=== PATIENT | female | born 1985 | race Hispanic/Latino ===

== ENCOUNTER 2016-10-27 00:22 | Outpatient (CLI) | payer MEDICAID ==
[2016-10-27 00:51] VITALS: BP 128/76
[2016-10-27] MEDS ORDERED: VISTARIL PO PRN (04:04)
--- NOTE | 2016-10-27 10:11 | Ultrasound Report ---
BIOPHYSICAL PROFILE: 2 - breathing movements 2 - movements 2 - posture and tone 2 - Qualitative amniotic fluid volume H. - TOTAL SCORE OF POSSIBLE 8 Heart Rate (bpm) 141 Gestation: Single Position: Cephalic Amniotic Fluid: JOE = 9.2 cm Placenta: Anterior Placental Grade: 1 Heart Rate: 141 BPM
== END 2016-10-27 04:33 | disposition home or self-care (01) ==
LOC: TRG 00:22
PROVIDERS: ATTEND Obstetrics & Gynecology
DX: O48.0 Post-term pregnancy (principal); Z3A.41 41 weeks gestation of pregnancy
CPT/HCPCS: 59025; 76815; 76819; Q0177

== ENCOUNTER 2016-10-27 15:59 | Inpatient (IN) | payer MEDICAID ==
[2016-10-27] MEDS ORDERED: ePHEDrine SULFATE IV PRN ×2 (16:08→18:27)
[2016-10-27] MEDS ORDERED: MINERAL OIL PO PRN (16:08)
[2016-10-27] MEDS ORDERED: BRETHINE IVP PRN (16:08)
[2016-10-27] MEDS ORDERED: NARCAN 0.4 MG/1 ML IV PRN (16:08)
[2016-10-27] MEDS ORDERED: SUBLIMAZE IV PRN (16:08)
[2016-10-27] MEDS ORDERED: STADOL IV PRN (16:08)
[2016-10-27] MEDS ORDERED: ZOFRAN IV PRN ×2 (16:08→23:02)
[2016-10-27] MEDS ORDERED: BRETHINE SUB-Q PRN (16:17)
[2016-10-27] MEDS ORDERED: PITOCin/NS 30 UNIT/500ML 30 UNITS/500 ML BAG IV SCH (16:30)
[2016-10-27] MEDS ORDERED: POLYCILLIN/NS 2 GM/100 ML 2 GM/100 ML BAG IV ONE (17:00)
[2016-10-27] MEDS ORDERED: XYLOCAINE 2% INFILTRATI ONE (17:00)
[2016-10-27] MEDS ORDERED: PITOCin/NS 20 UNIT/1000ML DRIP 20 UNITS/1,000 ML BAG IV SCH ×2 (17:00→23:02)
[2016-10-27 17:08] LABS: Hematocrit 35.8 % (30.3-42.9); Hemoglobin 11.8 gm/dl (10.1-14.3); Mean Corpuscular HGB Conc 33 % (30-34); Mean Corpuscular Hemoglobin 27 pg (28-32); Mean Corpuscular Volume 83 fl (79-97); Platelet Count 196 K/mm3 (140-440); Red Blood Count 4.32 M/mm3 (3.65-5.03); White Blood Count 14.4 K/mm3 (4.5-11.0)
[2016-10-27] MEDS ORDERED: ePHEDrine SULFATE ONE (17:48)
[2016-10-27] MEDS: LACTATED RINGERS 1,000 ML IV SCH ×2 (17:49→18:03)
--- NOTE | 2016-10-27 18:27 | Anesthesia Consultation ---
Anesthesia Consult and Med Hx Date of service: 10/27/16 - Airway Anesthetic Teeth Evaluation: Good ROM Head & Neck: Adequate Mental/Hyoid Distance: Adequate Intubation Access Assessment: Probably Good - Pre-Operative Health Status ASA Pre-Surgery Classification: ASA2, Emergency Proposed Anesthetic Plan: Epidural, Spinal - Pulmonary Hx Asthma: No COPD: No Hx Pneumonia: No - Cardiovascular System Hx Hypertension: No - Central Nervous System Hx Seizures: No Hx Psychiatric Problems: No - Endocrine Hx Renal Disease: No Hx End Stage Renal Disease: No Hx Hypothyroidism: No Hx Hyperthyroidism: No - Hematic Hx Anemia: No Hx Sickle Cell Disease: No - Other Systems Hx Alcohol Use: No
[2016-10-27] MEDS ORDERED: fentaNYL-BUPIV 2 MCG/ML-0.125% 200 MCG/100 ML BAG EPIDURAL SCH (19:00)
[2016-10-27] MEDS ORDERED: XYLOCAINE MPF 2% ONE (19:04)
--- NOTE | 2016-10-27 20:15 | History and Physical Report ---
History of Present Illness Date of examination: 10/27/16 Date of admission: 10/27/16 16:21 Chief complaint: contractions History of present illness: Pt is a 31 year old female DALE 10/20/16 at 41w0d who presents with worsening regular contractions and cervical change from 3 cm at check earlier this morning in triage to 5 cm presently. She reports leakage of fluid that is meconium stained. She denies vaginal bleeding. She has had care with Dr Alida Oneil that has been uncomplicated. She is GBS negative. Past History Past Medical History: seizure (unspecified seizure disorder; last seizure 7 years ago ), hematologic disorders (Rh negative ) Past Surgical History: no surgical history Family/Genetic History: none Social history: - Obstetrical History Expected Date of Delivery: 10/20/16 Actual Gestation: 41 Week(s) 0 Day(s) : 3 Para: 2 Hx # Term Pregnancies: 2 Number of Pregnancies: 0 Spontaneous Abortions: 0 Induced : 0 Number of Living Children: 2 Medications and Allergies Allergies Allergy/AdvReac Type Severity Reaction Status Date / Time Latex, Natural Rubber Allergy Intermediate Rash Verified 05/17/14 08:36 Home Medications Medication Instructions Recorded Confirmed Last Taken Type HYDROcodone/ACETAMINOPHEN [Lortab 2 each PO Q6HR PRN #30 tablet 05/19/14 Unknown Rx 5-325 mg Tablet] Ibuprofen [Motrin 600 MG tab] 600 mg PO Q6H #30 tablet 05/19/14 Unknown Rx Active Meds: Active Medications Butorphanol Tartrate (Stadol) 2 mg IV Q2H PRN PRN Reason: Pain , Severe (7-10) Fentanyl (Sublimaze) 100 mcg IV Q2H PRN PRN Reason: Labor Pain Lactated Ringer's (Lactated Ringers) 1,000 mls @ 125 mls/hr IV DIRECT TAZ Last Admin: 10/27/16 18:03 Dose: 125 mls/hr Oxytocin/Sodium Chloride (Pitocin/Ns 20 Unit/1000ml Drip) 20 units in 1,000 mls @ 125 mls/hr IV DIRECT TAZ Oxytocin/Sodium Chloride (Pitocin/Ns 30 Unit/500ml) 30 units in 500 mls @ 4 mls /hr IV TITR TAZ PRN Reason: Protocol Last Titration: 10/27/16 19:35 Dose: 12 ml/hr, 12 mls/hr Fentanyl/Bupivacaine/Sodium Chlor (Fentanyl-Bupiv 2 Mcg/Ml-0.125%) 200 mcg in 100 mls @ 12 mls/hr EPIDURAL TITR TAZ PRN Reason: Protocol Last Admin: 10/27/16 18:47 Dose: 12 mls/hr Mineral Oil (Mineral Oil) 30 ml PO QHS PRN PRN Reason: Constipation Naloxone HCl (Narcan 0.4 Mg/1 Ml) 0.1 mg IV Q2MIN PRN PRN Reason: Res Rate </= 8 or 02 SAT < 92% Ondansetron HCl (Zofran) 4 mg IV Q8H PRN PRN Reason: Nausea And Vomiting Review of Systems All systems: negative - Vital Signs Vital signs: Vital Signs Temp Resp BP 97.9 F 18 133/77 10/27/16 17:07 10/27/16 17:07 10/27/16 17:07 Temp Pulse Resp BP Pulse Ox 97.6 F 119 H 20 118/70 99 10/27/16 19:18 10/27/16 20:03 10/27/16 19:18 10/27/16 19:51 10/27/16 20:03 - Physical Exam Breasts: Positive: deferred Cardiovascular: Regular rate Lungs: Positive: Clear to auscultation Abdomen: Positive: soft (obese, gravid ) Genitourinary (Female): Positive: normal external genitalia Uterus: Positive: enlarged (gravid ) Extremities: Positive: edema (1+ ) - Obstetrical FHR: category 2 Cervical Dilatation: 8 Cervical Effacement Percentage: 90 station: -1 Uterine Contraction Pattern: Regular Uterine Tone Measurement Phase: Resting Uterine Contraction Intensity: Strong/Firm Results Result Diagrams: 10/27/16 16:45 Abnormal lab results 10/27/16 Range/Units 16:45 WBC 14.4 H (4.5-11.0) K/mm3 MCH 27 L (28-32) pg RDW 16.0 H (13.2-15.2) % All other labs normal. Assessment and Plan A: IUP at 41w0d Active labor Rh Negative SROM- thin meconium GBS negative Obesity Seizure Disorder P: Admit to labor and delivery. Routine intrapartum care. Monitor maternal and status.
[2016-10-27] MEDS ORDERED: POLYCILLIN/NS 1 GM/50 ML 1 GM/50 ML BAG IV SCH (21:00)
--- NOTE | 2016-10-27 21:07 | Procedure Note ---
OB Delivery Note - Delivery Date of Delivery: 10/27/16 Surgeon: ERAN CHRISTENSEN Estimated blood loss: other (400 mL) - Vaginal Delivery presentation: vertex Delivery position: OA Intrapartum events: PROM->1hr before delivery, meconium Delivery monitor: external FHT, external uterine Route of delivery: Delivery placenta: spontaneous Delivery cord: nuchal cord, 3 umbilical vessels Episiotomy: none Delivery laceration: 2nd degree Delivery repair: vicryl Anesthesia: epidural Delivery comments: Pt progressed to complete/complete/+1 and pushed to deliver a viable male over intact perineum via under epidural anesthesia. Head delivered in the GABRIEL position. Nuchal cord was doubly clamped and cut. Shoulders and body delivered easily. placed on maternal abdomen and bulb suctioned. NICU in attendance for meconium. Cord blood collected. Placenta delivered spontaneously (3VC, intact). Vagina and perineum explored. Second degree perineal laceration repaired with 2-0 Vicryl in a standard fashion. EBL 400 mL. - A at 1 minute: 8 at 5 minutes: 9 Infant Gender: Male (4239g (9lb 5oz))
[2016-10-27] MEDS ORDERED: PHENERGAN PR PRN (23:02)
[2016-10-27] MEDS ORDERED: TYLENOL PO PRN (23:02)
[2016-10-27] MEDS ORDERED: DULCOLAX PR PRN (23:02)
[2016-10-27] MEDS ORDERED: LANSINOH TP PRN (23:02)
[2016-10-27] MEDS ORDERED: SODIUM CHLORIDE FLUSH SYRINGE 10 ML IV NR (23:02)
[2016-10-27] MEDS ORDERED: MILK OF MAGNESIA PO PRN (23:02)
[2016-10-27] MEDS ORDERED: BENADRYL PO PRN (23:02)
[2016-10-27] MEDS ORDERED: PHENERGAN PO PRN (23:02)
[2016-10-28] MEDS: MOTRIN PO SCH ×2 (00:09→05:45)
[2016-10-28] MEDS: TUCKS PAD TP PRN (00:10)
[2016-10-28] MEDS: DERMOPLAST TP PRN (00:10)
[2016-10-28] MEDS: NORCO 5/325 PO PRN ×2 (01:33→08:52)
[2016-10-28] MEDS ORDERED: BOOSTRIX IM ONE (06:00)
[2016-10-28] MEDS ORDERED: M-M-R II VACCINE SUB-Q ONE (06:00)
[2016-10-28] MEDS: FEOSOL PO SCH ×2 (08:52→21:52)
[2016-10-28] MEDS: COLACE PO SCH ×2 (08:52→21:52)
[2016-10-28] MEDS: PRENATAL VITAMIN PO SCH (08:54)
[2016-10-28 09:28] LABS: Hematocrit 37.5 % (30.3-42.9); Hemoglobin 12.3 gm/dl (10.1-14.3)
[2016-10-28] MEDS ORDERED: MORPHINE IV ONE (10:00)
--- NOTE | 2016-10-28 10:17 | Progress Note ---
Assessment and Plan A: PPD#1 s/p at term; Poor pain control P: Routine care. Change pain medication. Anticipate discharge tomorrow. Subjective - Subjective Date of service: 10/28/16 Principal diagnosis: s/p at term Interval history: Poor pain control overnight. Patient reports: appetite normal, voiding normally, pain poorly controlled, ambulating normally : doing well Objective - Vital Signs Latest vital signs: Vital Signs Temp Pulse Pulse Pulse Resp BP BP 10/28/16 08:52 20 10/28/16 07:39 98.7 F 72 18 10/28/16 04:30 -98.6 F L 68 16 114/70 10/28/16 01:33 20 10/28/16 00:00 98.6 F 77 16 124/72 10/27/16 21:08 101 H 10/27/16 21:05 111 H 139/56 10/27/16 20:59 104 H 10/27/16 20:57 104 H 10/27/16 20:52 107 H 10/27/16 20:47 110 H 10/27/16 20:36 110 H 10/27/16 20:32 143 H 10/27/16 20:27 104 H 10/27/16 20:22 100 H 136/68 10/27/16 20:17 118 H 10/27/16 20:12 106 H 10/27/16 20:07 109 H 10/27/16 20:03 119 H 10/27/16 19:58 124 H 10/27/16 19:53 115 H 10/27/16 19:51 116 H 118/70 10/27/16 19:47 105 H 10/27/16 19:43 105 H 10/27/16 19:37 104 H 10/27/16 19:32 102 H 10/27/16 19:27 99 H 10/27/16 19:23 99 H 129/76 10/27/16 19:22 107 H 10/27/16 19:21 102 H 95/54 10/27/16 19:18 97.6 F 105 H 100 H 20 129/76 10/27/16 19:13 103 H 10/27/16 19:07 102 H 10/27/16 19:02 103 H 10/27/16 18:58 107 H 10/27/16 18:56 78 10/27/16 18:52 99 H 10/27/16 18:50 95 H 108/59 10/27/16 18:48 100 H 113/62 10/27/16 18:46 109 H 118/67 10/27/16 18:44 100 H 118/65 10/27/16 18:42 103 H 115/64 10/27/16 18:40 101 H 111/61 10/27/16 18:38 110 H 110/62 10/27/16 18:36 104 H 105/56 10/27/16 18:34 115 H 103/58 10/27/16 18:32 97 H 104/56 10/27/16 18:30 100 H 116/63 10/27/16 18:28 105 H 115/59 10/27/16 18:27 107 H 10/27/16 18:26 99 H 117/64 10/27/16 18:24 95 H 118/65 10/27/16 18:23 98 H 10/27/16 18:22 96 H 120/69 10/27/16 18:20 108 H 128/71 10/27/16 18:18 56 L 121/63 10/27/16 18:17 98 H 10/27/16 18:16 102 H 126/73 10/27/16 18:14 97 H 143/75 10/27/16 18:13 99 H 10/27/16 18:12 106 H 139/74 10/27/16 18:10 102 H 144/72 10/27/16 18:08 110 H 123/78 10/27/16 18:06 106 H 135/68 10/27/16 18:04 110 H 145/66 10/27/16 18:03 99 H 10/27/16 18:02 100 H 125/90 10/27/16 18:00 104 H 132/86 10/27/16 17:58 97 H 125/79 10/27/16 17:07 97.9 F 18 133/77 BP Pulse Ox 10/28/16 08:52 10/28/16 07:39 124/60 10/28/16 04:30 10/28/16 01:33 10/28/16 00:00 10/27/16 21:08 100 10/27/16 21:05 10/27/16 20:59 92 10/27/16 20:57 95 10/27/16 20:52 99 10/27/16 20:47 98 10/27/16 20:36 79 L 10/27/16 20:32 100 10/27/16 20:27 100 10/27/16 20:22 99 10/27/16 20:17 100 10/27/16 20:12 100 10/27/16 20:07 100 10/27/16 20:03 99 10/27/16 19:58 98 10/27/16 19:53 100 10/27/16 19:51 10/27/16 19:47 100 10/27/16 19:43 99 10/27/16 19:37 99 10/27/16 19:32 99 10/27/16 19:27 100 10/27/16 19:23 10/27/16 19:22 98 10/27/16 19:21 10/27/16 19:18 97 10/27/16 19:13 99 10/27/16 19:07 99 10/27/16 19:02 99 10/27/16 18:58 99 10/27/16 18:56 87 10/27/16 18:52 98 10/27/16 18:50 10/27/16 18:48 97 10/27/16 18:46 10/27/16 18:44 10/27/16 18:42 98 10/27/16 18:40 10/27/16 18:38 96 10/27/16 18:36 10/27/16 18:34 10/27/16 18:32 98 10/27/16 18:30 10/27/16 18:28 10/27/16 18:27 99 10/27/16 18:26 10/27/16 18:24 10/27/16 18:23 99 10/27/16 18:22 10/27/16 18:20 10/27/16 18:18 75 L 10/27/16 18:17 96 10/27/16 18:16 10/27/16 18:14 10/27/16 18:13 99 10/27/16 18:12 10/27/16 18:10 10/27/16 18:08 94 10/27/16 18:06 10/27/16 18:04 10/27/16 18:03 98 10/27/16 18:02 10/27/16 18:00 10/27/16 17:58 100 10/27/16 17:07 Intake and Output 10/27/16 10/28/16 10/28/16 22:59 06:59 14:59 Intake Total 1000 400 Output Total 600 800 Balance 400 -400 Intake: IV 1000 Lactated Ringers 1,000 ml 1000 @ 125 mls/hr IV DIRECT TAZ Rx#:[id number] Intake, Free Water 400 Output: Urine 600 800 Indwelling Catheter 600 800 Other: Total, Output Amount 600 800 # Voids Indwelling Catheter 2 1 Weight 102.965 kg - Exam Breasts: Present: deferred Cardiovascular: Present: Regular rate Lungs: Present: Clear to auscultation Abdomen: Present: soft (obese) Uterus: Present: fundal height at umbilicus Extremities: Present: edema (trace) - Labs Labs: Abnormal lab results 10/27/16 Range/Units 16:45 WBC 14.4 H (4.5-11.0) K/mm3 MCH 27 L (28-32) pg RDW 16.0 H (13.2-15.2) %
--- NOTE | 2016-10-28 13:19 | Discharge Summary ---
Providers - Providers Date of Admission: 10/27/16 16:21 Date of discharge: 10/29/16 Attending physician: DEBORAH LUIS 10/27/16 23:02 Consult to Library Acquisitions Technician [CONS] Routine Reason For Exam: assistance with , SNS Primary care physician: DEBORAH LUIS Hospitalization Reason for admission: active labor Delivery: Procedure details: Please see delivery note. Episiotomy: none Laceration: 2nd degree Incision: intact Other procedures: none complications: none Discharge diagnosis: IUP at term delivered [place] baby: male Hospital course: The patient was admitted in active labor and ultimately underwent a spontaneous vaginal delivery which she tolerated well. Her course was uncomplicated and she met discharge criteria on postoperative day #2. She will follow up with Dr. Deborah Luis for her visit. Condition at discharge: Stable Disposition: DISCHARGED TO HOME OR SELFCARE - Discharge Diagnoses (1) Term of male Status: Acute (2) Obesity Status: Acute Qualifiers: Obesity type: unspecified obesity type Obesity severity: non-morbid Qualified Code(s): E66.9 - Obesity, unspecified Plan - Discharge Medications Prescriptions: Ibuprofen [Motrin 800 MG tab] 800 mg PO Q8HR PRN #30 tablet PRN Reason: Pain oxyCODONE /ACETAMINOPHEN [Percocet 5/325] 1 tab PO Q6HR PRN #30 tablet PRN Reason: Pain - Provider Discharge Summary Activity: routine, no sex for 6 weeks, no heavy lifting 4 weeks, no strenuous exercise Diet: routine Instructions: routine Additional instructions: [] Smoking cessation referral if applicable(refer to patient education folder for contact #) [] Refer to [facility] Booklet Call your doctor immediately for: * Fever > 100.5 * Heavy vaginal bleeding ( >1 pad per hour) * Severe persistent headache * Shortness of breath * Reddened, hot, painful area to leg or breast * Drainage or odor from incision. * Keep incision clean and dry at all times and follow doctor's instructions regarding bathing/showering - Follow up plan Follow up: DEBORAH LUIS MD [Primary Care Provider] - 11/28/16 ( exam )
[2016-10-28] MEDS: PERCOCET 5/325 PO PRN ×2 (15:09→20:12)
[2016-10-28] MEDS: MOTRIN PO PRN (15:10)
[2016-10-29] MEDS: PERCOCET 5/325 PO PRN ×3 (00:33→13:48)
[2016-10-29] MEDS: MOTRIN PO PRN ×2 (00:33→06:47)
[2016-10-29] MEDS: TUCKS PAD TP PRN (00:43)
[2016-10-29] MEDS: PRENATAL VITAMIN PO SCH (10:15)
[2016-10-29] MEDS: FEOSOL PO SCH (10:15)
[2016-10-29] MEDS: COLACE PO SCH (10:15)
[2016-10-29] MEDS: DERMOPLAST TP PRN (10:23)
[2016-10-29 15:23] VITALS: BP 131/79
== END 2016-10-29 15:30 | disposition home or self-care (01) | DRG 775 ==
LOC: TRG 15:59 → LD 16:21 → OB 23:46
PROVIDERS: ADMIT Obstetrics & Gynecology; ATTEND Obstetrics & Gynecology
PROC: 10E0XZZ Delivery of Products of Conception, External Approach (ICD-10-PCS; principal; 2016-10-27)
PROC: 0KQM0ZZ Repair Perineum Muscle, Open Approach (ICD-10-PCS; 2016-10-27)
PROC: 3E0S3CZ (ICD-10-PCS; 2016-10-27)
PROC: 00HU33Z Insertion of Infusion Device into Spinal Canal, Percutaneous Approach (ICD-10-PCS; 2016-10-27)
PROC: 30233S1 Transfusion of Nonautologous Globulin into Peripheral Vein, Percutaneous Approach (ICD-10-PCS; 2016-10-28)
DX: O69.81X0 Labor and delivery complicated by cord around neck, without compression, not applicable or unspecified (principal); O99.354 Diseases of the nervous system complicating childbirth; G40.909 Epilepsy, unspecified, not intractable, without status epilepticus; O77.0 Labor and delivery complicated by meconium in amniotic fluid; O42.02 Full-term premature rupture of membranes, onset of labor within 24 hours of rupture; O99.214 Obesity complicating childbirth; O70.1 Second degree perineal laceration during delivery; Z37.0 Single live birth; Z3A.41 41 weeks gestation of pregnancy; Z88.8 Allergy status to other drugs, medicaments and biological substances
CPT/HCPCS: 36415; 85014; 85018; 85027; 85460; 85461; 86850; 86900; 86901; 99211; A6250; G0463; J2270; J2590; J2790; J7120